=== PATIENT | male | born 1995 | race Caucasian/White ===

== ENCOUNTER 2019-05-20 20:21 | Emergency (ER) | payer BC ==
--- NOTE | 2019-05-20 20:56 | ER Document Report ---
ED Medical Screen (RME) - General Chief Complaint: Abscess Stated Complaint: POSSIBLE ABSCESS ON NECK Time Seen by Provider: 05/20/19 20:51 Mode of Arrival: Ambulatory Information source: Patient Notes: 44-year-old male presents to ED for complaint of an abscess. He states he has had a knot on the back of his neck for about a year but it was never painful it is tripled in size in the last week and is now very painful. He states he was able to take ibuprofen for a while but does not happen anymore. It is very swollen and red. He states it is very painful to turn his head due to the ab scess. He states he vapes does not smoke cigarettes does not drink and does use pot occasionally. Denies any past medical or surgical history. He states he took Tylenol extra strength 2 tablets but just before coming. I have greeted and performed a rapid initial assessment of this patient. A comprehensive ED assessment and evaluation of the patient, analysis of test results and completion of medical decision making process will be conducted by an additional ED providers. TRAVEL OUTSIDE OF THE [place] IN LAST 30 DAYS: No - Related Data Allergies/Adverse Reactions: No Known Allergies Allergy (Unverified 12/03/13 21:47) Past Medical History Neurological Medical History: Reports: Hx Migraine Psychiatric Medical History: Reports: Hx Attention Deficit Hyperactivity Disorder - Immunizations Immunizations up to date: Yes Hx Diphtheria, Pertussis, Tetanus Vaccination: Yes Physical Exam - Vital signs Vitals: Temp Pulse Resp BP Pulse Ox 98.9 F 70 16 137/71 H 100 05/20/19 20:43 05/20/19 20:43 05/20/19 20:43 05/20/19 20:43 05/20/19 20:43 Course - Vital Signs Vital signs: Temp Pulse Resp BP Pulse Ox 98.9 F 70 16 137/71 H 100 05/20/19 20:43 05/20/19 20:43 05/20/19 20:43 05/20/19 20:43 05/20/19 20:43
--- NOTE | 2019-05-20 23:21 | ER Document Report ---
ED Skin Rash/Insect Bite/Abscs - General Chief Complaint: Abscess Stated Complaint: POSSIBLE ABSCESS ON NECK Time Seen by Provider: 05/20/19 20:51 Primary Care Provider: ELIZABETH ROMERO PA-C [Primary Care Provider] - Follow up as needed Mode of Arrival: Ambulatory Notes: Mr. Grant is an otherwise healthy 24-year-old male presenting to the ED for left sided posterior neck pain. Patient states that he believes that he has had a sebaceous cyst there for quite some time, approximately 1 year. Over the past week it become increasingly more painful and tender and yesterday became red warm to touch and more swollen. His states that it is tripled in size since this morning. No known fevers at home however he has been complaining of being cold and felt chilled. Patient denies any chest pain, abdominal pain, nausea vomiting or diarrhea. He is able to range his neck in full directions however he endorses some tightness when he pulls turns towards the right. TRAVEL OUTSIDE OF THE [place] IN LAST 30 DAYS: No - Related Data Allergies/Adverse Reactions: No Known Allergies Allergy (Unverified 12/03/13 21:47) Past Medical History - General Information source: Patient - Social History Smoking Status: Former Smoker Drug Abuse: Marijuana Family History: Arthritis, CVA, Hyperlipidemia, Hypertension Patient has suicidal ideation: No Patient has homicidal ideation: No Neurological Medical History: Reports: Hx Migraine Psychiatric Medical History: Reports: Hx Attention Deficit Hyperactivity Disorder - Immunizations Immunizations up to date: Yes Hx Diphtheria, Pertussis, Tetanus Vaccination: Yes Review of Systems - Review of Systems Constitutional: See HPI EENT: No symptoms reported Cardiovascular: No symptoms reported Respiratory: No symptoms reported Gastrointestinal: No symptoms reported Genitourinary: No symptoms reported Male Genitourinary: No symptoms reported Musculoskeletal: No symptoms reported Skin: See HPI Hematologic/Lymphatic: No symptoms reported Neurological/Psychological: No symptoms reported Physical Exam - Vital signs Vitals: Temp Pulse Resp BP Pulse Ox 98.9 F 70 16 137/71 H 100 05/20/19 20:43 05/20/19 20:43 05/20/19 20:43 05/20/19 20:43 05/20/19 20:43 Upon my evaluation, the patient felt warm to touch so I reassess his temperature. His temperature orally was 100.4 F. Interpretation: Febrile - General General appearance: Appears well, Alert - HEENT Head: Normocephalic, Atraumatic Eyes: Normal Pupils: PERRL Neck: No: Brudzinski, Kernig's, Meningismus Notes: 3 cm x 2 cm oval erythematous and warm to palpation lesion to the left posterior paraspinous mid neck. No midline tenderness palpation. No meningismus. - Respiratory Respiratory status: No respiratory distress Chest status: Nontender Breath sounds: Normal Chest palpation: Normal - Cardiovascular Rhythm: Regular Heart sounds: Normal auscultation Murmur: No - Abdominal Inspection: Normal Distension: No distension Bowel sounds: Normal Tenderness: Nontender Organomegaly: No organomegaly - Back Back: Normal, Nontender - Extremities General upper extremity: Normal inspection, Nontender, Normal color, Normal ROM, Normal temperature General lower extremity: Normal inspection, Nontender, Normal color, Normal ROM, Normal temperature, Normal weight bearing. No: Susana's sign - Neurological Neuro grossly intact: Yes Cognition: Normal Orientation: AAOx4 [place] Coma Scale Eye Opening: Spontaneous [place] Coma Scale Verbal: Oriented [place] Coma Scale Motor: Obeys Commands [place] Coma Scale Total: 15 Speech: Normal Motor strength normal: LUE, RUE, LLE, RLE Sensory: Normal - Psychological Associated symptoms: Normal affect, Normal mood - Skin Skin Temperature: Warm Skin Moisture: Dry Skin Color: Normal Course - Re-evaluation Re-evalutation: Patient is generally well-appearing and nontoxic. Initial vitals within normal limits however upon my reassessment he was febrile to 100.4. Likely this is an infected sebaceous cyst. Differential diagnosis includes infected sebaceous cyst, abscess, cellulitis, insect bite 05/20/19 23:26 Bedside ultrasound performed. Shows evidence of a fluid-filled collection consistent with abscess. Orders placed for medications as needed for incision and drainage. Patient will be given ibuprofen 800 mg by mouth, 1 Percocet 5 mg by mouth, and Keflex for antibiotic. Nursing staff setting up for I&D. Wound culture also be obtained. Patient denies any history of IVDU or previous history of MRSA therefore no indication for MRSA coverage. 05/21/19 01:31 I&D performed. Patient tolerated procedure well. Incision made was approximately 1 cm in length. At least 10 mL's of purulent discharge was obtained. Wound culture sent. Patient given first dose of Keflex. Unclear if I was able to remove the full capacity of the sebaceous cyst. Patient packed with 1/4 inch iodoform gauze. Recommended to remove it in 48 hours. Patient wi ll be provided with work note and remainder course of antibiotics. Patient given return precautions. - Vital Signs Vital signs: Temp Pulse Resp BP Pulse Ox 100.4 F 70 16 137/71 H 100 05/20/19 23:20 05/20/19 20:43 05/20/19 20:43 05/20/19 20:43 05/20/19 20:43 Procedures - Incision and Drainage Left Posterior Neck Type: Simple Anesthetic type: 1% Lidocaine w/epi mL's of anesthetic: 10 Blade size: 11 I&D procedure: Betadine prep applied, Shurclens applied, Iodoform packing placed Incision Method: Incision made by scalpel Amount/type of drainage: 10 ml Adult Head Front/Back picture: 1 - [id number] oval abscess 2 - Linear 1 mm incision made Discharge - Discharge Clinical Impression: Infected sebaceous cyst of skin, Neck pain Condition: Good Disposition: HOME, SELF-CARE Instructions: Cephalexin ([facility]), Abscess ([facility]), Post Incision and Drainage Additional Instructions: I would recommend that you remove the packing material either Monday night or morning. If you notice worsening signs of infection, redness, or more pus, return to the ED for further evaluation. Otherwise he can follow-up with your primary care doctor. If this is continues to recur, it would be prudent for you to follow-up with a sheet metal erector to fully excise the entirety of the sebaceous cyst as these tend to recur. Prescriptions: Cephalexin Monohydrate [Keflex 500 mg Capsule] 500 mg PO TID 7 Days capsule Forms: Return to Work Referrals: ELIZABETH ROMERO PA-C [Primary Care Provider] - Follow up as needed
[2019-05-20] MEDS ORDERED: IBUPROFEN 600 MG TABLET PO ONE (23:24)
[2019-05-20] MEDS ORDERED: LIDOCAINE 1%/EPINEPHRINE INJ 20 ML VIAL INJ ONE (23:24)
[2019-05-20] MEDS ORDERED: CEPHALEXIN 500 MG CAPSULE PO ONE (23:24)
[2019-05-20] MEDS ORDERED: OXYCODONE-ACETAMINOPHEN 5-325 MG TABLET PO ONE (23:24)
[2019-05-21 02:06] VITALS: BP 155/79
== END 2019-05-21 02:23 | disposition home or self-care (01) ==
LOC: ER 20:21
DX: L72.3 Sebaceous cyst (principal); M54.2 Cervicalgia
CPT/HCPCS: 87070; 87205; 87075; 87077; 10060; A6266; J3490; 87186; 99282